=== PATIENT | male | born 1995 | race Caucasian/White ===

== ENCOUNTER 2020-12-21 08:45 | Emergency (ER) | payer SELFPAY ==
[2020-12-21] MEDS ORDERED: ONDANSETRON 4 MG/2 ML VIAL IVP STA (09:09)
[2020-12-21] MEDS ORDERED: SODIUM CHLORIDE 0.9% 1,000 ML IV STA (09:09)
--- NOTE | 2020-12-21 09:11 | ED Physician Documentation ---
PD HPI ABD PAIN - Stated complaint Stated Complaint: MALE - Chief complaint Chief Complaint: Abd Pain - History obtained from History obtained from: Patient - Additional information Additional information: 25-year-old gentleman was diagnosed with hemorrhoids with scant bleeding in his teens. Yesterday and today had a large volume rectal bleeding. Is associated with right lower quadrant pain. He has never had anything like this before. Mom and Gma have crohns. Review of Systems Ten Systems: 10 systems reviewed and negative Cardiac: reports: Reviewed and negative Respiratory: reports: Reviewed and negative PD PAST MEDICAL HISTORY - Present Medications Home Medications: Ambulatory Orders Medication Instructions Recorded Confirmed Cetirizine [ZyrTEC] 10 mg PO DAILY 12/21/20 12/21/20 - Allergies Allergies/Adverse Reactions: Allergies Allergy/AdvReac Type Severity Reaction Status Date / Time No Known Drug Allergies Allergy Verified 12/21/20 09:00 PD ED PE NORMAL - Vitals Vital signs reviewed: Yes - General General: Alert and oriented X 3, No acute distress - HEENT HEENT: PERRL, EOMI - Neck Neck: Supple, no meningeal sign, No bony TTP - Cardiac Cardiac: RRR, No murmur - Respiratory Respiratory: No respiratory distress, Clear bilaterally - Abdomen Abdomen: Normal bowel sounds, Soft, Other (Modest right lower quadrant tenderness without surgical signs) - Rectal Rectal: Other (No visible external hemorrhoid, there is gross blood on rectal exam.) - Derm Derm: Normal color, Warm and dry - Extremities Extremities: No edema, No calf tenderness / cord - Neuro Neuro: Alert and oriented X 3, Normal speech Results - Vitals Vitals: Vital Signs - 24 hr 12/21/20 12/21/20 08:57 11:45 Temperature 36.0 C L Heart Rate 67 57 L Respiratory 20 16 Rate Blood Pressure 141/76 H 128/81 H O2 Saturation 97 98 Oxygen O2 Source Room air - Labs Labs: Laboratory Tests 12/21/20 12/21/20 12/21/20 09:32 09:32 09:32 WBC 7.5 RBC 4.44 L Hgb 13.4 L Hct 40.3 L MCV 90.8 MCH 30.2 MCHC 33.3 RDW 12.9 Plt Count 226 MPV 10.7 Neut # (Auto) 5.6 Lymph # (Auto) 1.3 L Chester # (Auto) 0.5 Eos # (Auto) 0.0 Baso # (Auto) 0.0 Absolute Nucleated RBC 0.00 Nucleated RBC % 0.0 PT INR Sodium 140 Potassium 4.4 Chloride 105 Carbon Dioxide 28 Anion Gap 7.0 BUN 16 Creatinine 0.9 Estimated GFR (MDRD) 103 Glucose 120 H Calcium 9.3 Total Bilirubin 0.7 AST 21 ALT 20 Alkaline Phosphatase 56 Total Protein 7.2 Albumin 4.4 Globulin 2.8 Albumin/Globulin Ratio 1.6 Lipase 26 Blood Type A NEGATIVE Blood Type Recheck Antibody Screen NEGATIVE 12/21/20 12/21/20 09:48 09:48 WBC RBC Hgb Hct MCV MCH MCHC RDW Plt Count MPV Neut # (Auto) Lymph # (Auto) Chester # (Auto) Eos # (Auto) Baso # (Auto) Absolute Nucleated RBC Nucleated RBC % PT 13.7 H INR 1.2 Sodium Potassium Chloride Carbon Dioxide Anion Gap BUN Creatinine Estimated GFR (MDRD) Glucose Calcium Total Bilirubin AST ALT Alkaline Phosphatase Total Protein Albumin Globulin Albumin/Globulin Ratio Lipase Blood Type Blood Type Recheck A NEGATIVE Antibody Screen - Rads (name of study) CT abdomen pelvis with oral and IV contrast shows diverticulosis, ectopic midline pelvic right kidney, otherwise no evidence of acute process. Radiology: EMP read contemporaneously PD MEDICAL DECISION MAKING - ED course ED course: 25-year-old gentleman with significant hematochezia with reassuring H&H, vital signs and exam. There is a strong family history of Crohn's disease, that said no evidence of inflammatory bowel disease on CT. He does have diverticulosis which may be causative. Initially he was agreeable to observation with the surgeon and potential colonoscopy. However after waiting a while since the surgeon was in the OR he had no bleeding while here and requested discharge and outpatient follow-up. He was given close return precautions. Departure - Departure Disposition: 01 Home, Self Care Clinical Impression: Hematochezia, Diverticulosis Condition: Good Record reviewed to determine appropriate education?: Yes Instructions: ED Hematochezia Stable Follow-Up: Evans Biggs MD [Provider Admit Priv/Credential] - Edward Archibald MD [Provider Admit Priv/Credential] - Comments: Return if bleeding worsens or you develop new or worrisome symptoms especially shortness of breath or lightheadedness. Follow-up with the surgeon, next available appointment for consideration for outpatient colonoscopy. 2 surgeons are listed on this form, I would just follow-up with whoever you can get in sooner.
[2020-12-21] MEDS ORDERED: IOVERSOL 320 50 ML VIAL ONE (09:16)
[2020-12-21] MEDS ORDERED: IOPAMIDOL-300 100 ML VIAL ONE (09:16)
[2020-12-21 09:42] LABS: BASOPHILS % (AUTO) 0.4 %; EOSINOPHILS % (AUTO) 0.1 %; HCT - HEMATOCRIT 40.3 % (42.0-52.0); HGB - HEMOGLOBIN 13.4 g/dL (14.0-18.0); LYMPHOCYTES # (AUTO) 1.3 10^3/uL (1.5-3.5); LYMPHOCYTES % (AUTO) 17.9 %; MEAN CORPUSCULAR HEMOGLOBIN 30.2 pg (27.0-31.0); MEAN CORPUSCULAR HGB CONC 33.3 g/dL (32.0-36.0); MEAN CORPUSCULAR VOLUME 90.8 fL (80.0-94.0); MEAN PLATELET VOLUME 10.7 fL (7.4-11.4); MONOCYTES # (AUTO) 0.5 10^3/uL (0.0-1.0); MONOCYTES % (AUTO) 6.7 %; NEUTROPHILS # (AUTO) 5.6 10^3/uL (1.5-6.6); NEUTROPHILS % (AUTO) 74.6 %; PLT - PLATELET COUNT 226 10^3/uL (130-450); RED BLOOD COUNT 4.44 10^6/uL (4.70-6.10); RED CELL DISTRIBUTION WIDTH 12.9 % (12.0-15.0); WHITE BLOOD COUNT 7.5 x10^3/uL (4.8-10.8)
[2020-12-21 09:56] LABS: ALBUMIN 4.4 g/dL (3.2-5.5); ALBUMIN/GLOBULIN RATIO 1.6 (1.0-2.2); BILIRUBIN,TOTAL 0.7 mg/dL (0.2-1.0); CALCIUM 9.3 mg/dL (8.5-10.3); CREATININE 0.9 mg/dL (0.6-1.2); POTASSIUM 4.4 mmol/L (3.5-5.0); TOTAL PROTEIN 7.2 g/dL (6.7-8.2)
[2020-12-21 10:00] LABS: INR 1.2 (0.8-1.2); PT - PROTHROMBIN TIME 13.7 secs (9.9-12.6)
--- NOTE | 2020-12-21 10:50 | CT Report ---
PROCEDURE: Abdomen/Pelvis W INDICATIONS: RLQ pain and hematochezia, iv and po CONTRAST: IV CONTRAST: Isovue 300 ml: 100 PO CONTRAST: Optiray 320 ml50 TECHNIQUE: After the administration of oral and intravenous contrast, 5 mm thick sections acquired from the diap hragms to the symphysis. 5 mm thick coronal and sagittal reformats were acquired. For radiation dos e reduction, the following was used: automated exposure control, adjustment of mA and/or kV accordin g to patient size. COMPARISON: None. FINDINGS: Image quality: Excellent. ABDOMEN: Lung bases: Lung bases are clear. Heart size is normal. Solid organs: Liver and spleen are normal in size and enhancement. Gallbladder is unremarkable. Bi liary system is non dilated. Pancreas enhances normally. No adrenal nodules. The right kidney is in normal location, and is unremarkable with homogeneous enhancement and no masses or stones or hydrone phrosis. 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 It i s otherwise unremarkable, with normal enhancement, without stones or masses or hydronephrosis. Peritoneum and bowel: Bowel loops demonstrate normal wall thickness and caliber. Sigmoid diverticulo sis without evidence of diverticulitis. No free fluid or air. A normal appendix is identified. Nodes and vessels: No retroperitoneal or mesenteric adenopathy by size criteria. Aorta and inferior vena cava are normal in size. Miscellaneous: No ventral hernias. PELVIS: Genitourinary: Bladder wall thickness is normal. Miscellaneous: No inguinal hernias or adenopathy. Bones: No suspicious bony lesions. No vertebral body compression fractures. IMPRESSION: 1. Normal-appearing right kidney, ectopic, midline pelvic kidney. 2. No renal stones, ureteral stones, or hydronephrosis. 3. Normal appendix. 4. No evidence of acute abdominal process. Reviewed by: Cristopher Timmons MD on 12/21/2020 10:49 AM PDT Approved by: Cristopher Timmons MD on 12/21/2020 10:49 AM PDT Station ID: [id number]
[2020-12-21 11:46] VITALS: BP 128/81
[2020-12-21 12:44] LABS: B. PARAPERTUSSIS- RESP PCR PAN NOT DETECTED; B. PERTUSSIS- RESP PCR PANEL NOT DETECTED; C. PNEUMONIAE- RESP PCR PANEL NOT DETECTED; CORONAVIRUS 229E-RESP PCR NOT DETECTED; CORONAVIRUS HKU1-RESP PCR NOT DETECTED; CORONAVIRUS NL63-RESP PCR NOT DETECTED; CORONAVIRUS OC43-RESP PCR NOT DETECTED; HUMAN METAPNEUMOVIRUS NOT DETECTED; INFLUENZA A- RESP PCR PANEL NOT DETECTED; INFLUENZA B - RESP PCR PANEL NOT DETECTED; M. PNEUMONIAE- RESP PCR PANEL NOT DETECTED; PARAINFLUENZA VIRUS 1 NOT DETECTED; PARAINFLUENZA VIRUS 2 NOT DETECTED; PARAINFLUENZA VIRUS 3 NOT DETECTED; PARAINFLUENZA VIRUS 4 NOT DETECTED; RHINOVIRUS/ENTEROVIRUS NOT DETECTED; RSV- RESP PCR PANEL NOT DETECTED; SARS-CoV-2 -RESP PCR PANEL NOT DETECTED
[2020-12-21] MEDS ORDERED: IOPAMIDOL-300 100 ML VIAL IVP ONE (13:14)
[2020-12-21] MEDS ORDERED: IOVERSOL 320 50 ML VIAL PO ONE (13:14)
== END 2020-12-21 12:46 | disposition home or self-care (01) ==
LOC: ED 08:45
DX: K57.93 Diverticulitis of intestine, part unspecified, without perforation or abscess with bleeding (principal); Z20.822 Contact with and (suspected) exposure to COVID-19
CPT/HCPCS: 0202U; 36415; 74177; 80053; 83690; 85025; 85610; 86850; 86900; 86901; 96374; 99284; Q9967

== ENCOUNTER 2021-01-27 06:08 | Day surgery (SDC) | payer SELFPAY ==
[2021-01-27] MEDS ORDERED: LACTATED RINGERS 1,000 ML IV ONE ×2 (06:51→08:24)
[2021-01-27] MEDS ORDERED: MIDAZOLAM 2 MG/2 ML VIAL ONE (06:56)
[2021-01-27] MEDS ORDERED: fentaNYL 100 MCG/2 ML VIAL ONE (06:56)
--- NOTE | 2021-01-27 07:15 | ANESTHESIA ---
Pre-Anesthesia VS, & Labs - Diagnosis hx gi bleed - Procedure egd, cscope Vital Signs: Temp Pulse Resp BP Pulse Ox 36.8 C 78 16 115/77 98 01/27/21 06:52 01/27/21 06:52 01/27/21 06:52 01/27/21 06:52 01/27/21 06:52 Height: 5 ft 11 in Weight (kg): 76.2 kg Body Mass Index: 23.4 BMI Classification: Healthy weight - NPO >8 hours - Lab Results Lab results reviewed: Yes Home Medications and Allergies Home Medications: Ambulatory Orders Acetaminophen [Tylenol] 650 mg PO Q6H PRN 01/26/21 Cetirizine [ZyrTEC] 10 mg PO DAILY 12/21/20 Acetaminophen [Tylenol] 650 mg PO Q6H PRN 01/26/21 Allergies/Adverse Reactions: Allergies Allergy/AdvReac Type Severity Reaction Status Date / Time No Known Drug Allergies Allergy Verified 12/21/20 09:00 Anes History & Medical History - Anesthetic History Anesthesia Complications: reports: No previous complications Family history of Anesthesia Complications: Denies Family history of Malignant Hyperthermia: Denies - Medical History Cardiovascular: reports: None Pulmonary: reports: Asthma, Other Gastrointestinal: reports: Other Urinary: reports: None Musculoskeletal: reports: Chronic back pain Smoking Status: Never smoker Exam General: Alert, Oriented x3, Cooperative Dental: WNL Mouth Openin Fingerbreadth Neck Mobility: Normal Mallampati classification: II Thyromental Distance: 4-6 cm Respiratory: Lungs clear, Normal breath sounds, No respiratory distress Cardiovascular: Regular rate Mental/Cognitive Status: Alert/Oriented X3, Normal for patient Cognitive Status: Within normal limits Plan Anesthesia Type: Total IV Consent for Procedure(s) Verified and Reviewed: Yes Code Status: Attempt Resuscitation ASA classification: 1-Healthy patient Is this case an emergency?: No
[2021-01-27] MEDS ORDERED: LIDO GARGLE 30 ML BOTTLE ONE (07:17)
[2021-01-27] MEDS ORDERED: ONDANSETRON 4 MG/2 ML VIAL IVP PRN (08:39)
--- NOTE | 2021-01-27 08:40 | ANESTHESIA POST OP EVALUATION ---
Anesthesia Post Eval - Post Anesthesia Eval Vitals: Last Vital Signs Temp 36.6 C 01/27/21 08:32 Pulse 74 01/27/21 08:32 Resp 14 01/27/21 08:32 BP 103/69 01/27/21 08:32 Pulse Ox 99 01/27/21 08:32 CV Function Including HR & BP: Stable Pain Control: Satisfactory Nausea & Vomiting: Addtional Therapies Ordered (zofran ordered x1 prn if needed) Mental Status: Baseline Respiratory Status: Airway Patent Hydration Status: Satisfactory Anesthesia Complications: None
[2021-01-27 08:51] VITALS: BP 118/76
== END 2021-01-27 06:09 | disposition home or self-care (01) ==
LOC: SDS 06:08
PROVIDERS: ATTEND Surgery
PROC: 0DB58ZX Excision of Esophagus, Via Natural or Artificial Opening Endoscopic, Diagnostic (ICD-10-PCS; 2021-01-27)
PROC: 0DB48ZX Excision of Esophagogastric Junction, Via Natural or Artificial Opening Endoscopic, Diagnostic (ICD-10-PCS; 2021-01-27)
PROC: 0DB98ZX Excision of Duodenum, Via Natural or Artificial Opening Endoscopic, Diagnostic (ICD-10-PCS; principal; 2021-01-27 07:30)
PROC: 0DB68ZX Excision of Stomach, Via Natural or Artificial Opening Endoscopic, Diagnostic (ICD-10-PCS; 2021-01-27 07:30)
DX: K62.5 Hemorrhage of anus and rectum (principal); R10.9 Unspecified abdominal pain; Z83.79 Family history of other diseases of the digestive system
CPT/HCPCS: 43239; 87635; A9270; J7120